=== PATIENT | female | born 1960 | race Caucasian/White ===

== ENCOUNTER → 2016-12-09 | Outpatient (CLI) | payer MEDICAID | LOC: RAD 08:30 | PROVIDERS: ATTEND Specialist | DX: C7A.8 Other malignant neuroendocrine tumors (principal) | CPT/HCPCS: 71260; 74160; 82565 ==

== ENCOUNTER → 2017-02-28 | Outpatient (CLI) | payer MEDICAID | LOC: RAD 15:55 | PROVIDERS: ATTEND Specialist | DX: C7A.8 Other malignant neuroendocrine tumors (principal); Z92.21 Personal history of antineoplastic chemotherapy | CPT/HCPCS: 78815; A9552 ==

== ENCOUNTER → 2017-06-15 | Outpatient (CLI) | payer MEDICAID ==
--- NOTE | 2017-06-16 09:39 | RADIOLOGY REPORT (SQ) ---
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 TECHNIQUE: Blood glucose level was verified. Above dose of FDG was injected intravenously. 2-D seg mented attenuation correction images were obtained from the base of the skull to the midthighs. Nonc ontrast CT images were obtained for attenuation correction and fusion with emission images. CT image s were performed without oral or intravenous contrast and are not sensitive for parenchymal lesions. A series of overlapping emission PET images were obtained. Images reviewed and manipulated at [facility] work station by the radiologist. Images stored on PACS. LIMITATIONS: None. FINDINGS: HEAD AND NECK: No areas of abnormal metabolic activity in the soft tissues of the head and neck. CHEST: No areas of abnormal metabolic activity in the chest. ABDOMEN AND PELVIS: Pancreatic mass has increased in size to 4.7 x 5.6 cm. SUV 6.0. PROXIMAL LOWER EXTREMITIES: No areas of abnormal metabolic activity in the soft tissues of the lower extremities. BONES: No abnormal metabolic activity in the visualized skeleton. ADDITIONAL CT FINDINGS: Unchanged non hypermetabolic lung nodules measuring up to about 1 cm. OTHER: No other significant findings. IMPRESSION: Increase in size of hypermetabolic pancreatic mass. TECHNICAL DOCUMENTATION: JOB ID: [id number] [employer]- All Rights Reserved
== END ==
LOC: RAD 16:55
PROVIDERS: ATTEND Internal Medicine
DX: C7A.8 Other malignant neuroendocrine tumors (principal)
CPT/HCPCS: 78815; A9552

== ENCOUNTER → 2017-08-27 | Outpatient (CLI) | payer MEDICAID ==
--- NOTE | 2017-08-27 13:34 | RADIOLOGY REPORT (SQ) ---
EXAM DESCRIPTION: CT ABDOMEN COMBO COMPLETED DATE/TIME: 08/27/2017 10:27 am REASON FOR STUDY: PANCREATIC CA(C25.1), SECONDARY LUNG CA (C78.00) C25.1 MALIGNANT NEOPLASM OF BODY OF PANCREAS C78.00 SECONDARY MALIGNANT NEOPLASM OF UNSPECIFIED LUNG COMPARISON: PET-CT 02/28/2017, 06/15/2017 CT chest 09/06/2016, 12/09/2016 CT abdomen pelvis 05/02/2016, 06/26/2016 TECHNIQUE: CT scan of the abdomen performed with and without intravenous contrast, and without oral contrast. Contrasted imaging performed using helical scanning technique with dynamic intravenous cont rast injection. Images reviewed with lung, soft tissue, and bone windows. Reconstructed coronal and s agittal MPR images reviewed. Delayed images for evaluation of the urinary system also acquired and ev aluated. All images stored on PACS. All CT scanners at this facility use dose modulation, iterative reconstruction, and/or weight based d osing when appropriate to reduce radiation dose to as low as reasonably achievable (ALARA). [facility]: Dose Right [facility]: CareDose [facility]: Dose Right [facility]: Teradose 4D [facility]: [employer] CONTRAST TYPE AND DOSE: contrast/concentration: Isovue 370.00 mg/ml; Total Contrast Delivered: 41.0 ml; Total Saline Delivered: 71.1 ml RENAL FUNCTION: Creatinine 0.5 RADIATION DOSE: Up-to-date CT equipment and radiation dose reduction techniques were employed. CTDIv ol: 3.6 - 11.3 mGy. DLP: 619 mGy-cm.. LIMITATIONS: None. FINDINGS: NONCONTRASTED IMAGING: No calcified gallstones or urinary stones. Several surgical clips are present in the right upper quadrant. POSTCONTRASTED IMAGING: LOWER CHEST: No significant findings. No nodules or infiltrates. LIVER: There is fatty liver. Air in the intrahepatic bile ducts left lobe liver similar compared to PET-CT 06/15/2017 A 2 x 1.8 cm liver parenchymal nodule is evident at the falciform ligament compatible with metastatic lesion. This is best shown on the axial series 6, image 4. There is an incompletely occlusive clot in the right portal vein, best shown on axial series 6, image s 37-46. SPLEEN: Normal size. No focal splenic lesions. However, the splenic vein is occluded by the pancrea tic head mass. PANCREAS: Since the prior PET-CT, pancreatic mass has significantly enlarged. Currently this measure s 7.4 cm AP x 5 cm transverse by 11 cm craniocaudad (was 5.6 by 4.7 cm in greatest diameter on prior PET-CT 06/15/2017). The pancreatic tail is profoundly atrophic, with a dilated main pancreatic duct b est shown on axial image 47. Tumor completely surrounds the superior mesenteric artery and celiac ar dimple proximally without high-grade stenosis. Tumor occludes the splenic vein and superior mesenteric vein. There is surrounding adenopathy, with a 2.2 x 1.4 cm celiac lymph node superior to the pancreatic kashif or, and a 1.6 x 1.1 cm retroperitoneal lymph node at the left renal artery. No ascites. GALLBLADDER: Surgically absent. ADRENAL GLANDS: No significant masses or asymmetry. RIGHT KIDNEY AND URETER: No solid masses. No significant calcifications. No hydronephrosis or hyd roureter. LEFT KIDNEY AND URETER: No solid masses. No significant calcifications. No hydronephrosis or hydr oureter. AORTA AND VESSELS: No aneurysm. No dissection. Renal arteries, SMA, celiac without stenosis. RETROPERITONEUM: As above BOWEL AND PERITONEAL CAVITY: Small bowel anastomotic danny in the left epigastrium. No evidence of bowel obstruction. APPENDIX: Not in the field of view ABDOMINAL WALL: No masses. No hernias. BONES: No significant or acute findings. OTHER: No other significant finding. IMPRESSION: Increase in size of pancreatic head mass, canal tumor is narrowing or occluding the sple suzan vein and superior mesenteric veins. There is incompletely occlusive clot in the right portal vein 2 x 1.8 cm liver parenchymal nodule left lobe near the falciform worrisome for liver metastatic lesio n Enlarged retroperitoneal nodes TECHNICAL DOCUMENTATION: JOB ID: [id number] Quality ID # [id number]: Final reports with documentation of one or more dose reduction techniques (e.g., Au tomated exposure control, adjustment of the mA and/or kV according to patient size, use of iterative reconstruction technique) 2010 [employer]- All Rights Reserved
== END ==
LOC: RAD 09:16
PROVIDERS: ATTEND Radiology Radiation Oncology
DX: C25.1 Malignant neoplasm of body of pancreas (principal); C78.00 Secondary malignant neoplasm of unspecified lung
CPT/HCPCS: 74170

== ENCOUNTER → 2017-09-07 | Outpatient (CLI) | payer MEDICAID ==
--- NOTE | 2017-09-08 09:52 | RADIOLOGY REPORT (SQ) ---
EXAM DESCRIPTION: PET CT SKULL/THIGH COMPLETED DATE/TIME: 09/07/2017 5:22 pm REASON FOR STUDY: PANCREATIC CANCER C25.1 MALIGNANT NEOPLASM OF BODY OF PANCREAS C78.00 SECONDARY MALIGNANT NEOPLASM OF UNSPECIFIED LUNG COMPARISON: CT abdomen pelvis 08/27/2017 PET-CT 06/15/2017, 02/28/2017 CT chest abdomen pelvis 12/09/2016, 09/06/2016, 06/26/2016 CT chest 06/26/2016 go RADIONUCLIDE AND DOSE: 12 mCi F18 FDG The route of agent administration: Intravenous FASTING BLOOD SUGAR: 112 mg/dl CONTRAST TYPE AND DOSE: No CT contrast given. TECHNIQUE: Blood glucose level was verified. Above dose of FDG was injected intravenously. 2-D seg mented attenuation correction images were obtained from the base of the skull to the midthighs. Nonc ontrast CT images were obtained for attenuation correction and fusion with emission images. CT image s were performed without oral or intravenous contrast and are not sensitive for parenchymal lesions. A series of overlapping emission PET images were obtained. Images reviewed and manipulated at [facility] work [facility] by the radiologist. Images stored on PACS. LIMITATIONS: None. FINDINGS: HEAD AND NECK: No areas of abnormal metabolic activity in the soft tissues of the head and neck. CHEST: No areas of abnormal metabolic activity in the chest. Specifically, subcentimeter nodule in t he superior segment right lower lobe image 73, and along the right middle lobe image 85 are non metab olic. ABDOMEN AND PELVIS: Continued enlargement of the primary pancreatic mass, now measures about 9 x 7 cm in size with central necrosis, and peripheral rim of hypermetabolic tissue with SUV ranging from 5.8 to 6.6. There are new hypermetabolic lymph nodes at the root of mesenteries and in the retroperitoneum along the aorta and vena cava, SUV 2.44. Since the prior PET-CT exam 06/15/2017, patient has developed new liver lesions. Increase in size of the left lobe liver nodule since 08/27/2017. On the current exam, there is a 3 x 2.3 cm mass at the left lobe liver near the falciform ligament with SUV of 7 (was 2 x 1.8 cm on 2016, not present on PET-CT 06/15/2017). New hypermetabolic lesion posterior right lobe liver sub- diaphragmatic surface about 1 cm in size wi th SUV 4.2 (new compared to 08/27/2017 and 06/15/2017). PROXIMAL LOWER EXTREMITIES: No areas of abnormal metabolic activity in the soft tissues of the lower extremities. BONES: No abnormal metabolic activity in the visualized skeleton. ADDITIONAL CT FINDINGS: Old left occipital craniotomy. Post cholecystectomy and Obey-en-Y hepaticoje junostomy. OTHER: Liver background activity 1.5 SUV, blood pool activity background 1.3 SUV IMPRESSION: Progression of primary pancreatic tumor compared to previous exams. Liver lesions are n ow present. Increasing retroperitoneal and root of mesentery adenopathy TECHNICAL DOCUMENTATION: JOB ID: [id number] [employer]- All Rights Reserved
== END ==
LOC: RAD 15:03
PROVIDERS: ATTEND Radiology Radiation Oncology
DX: C25.1 Malignant neoplasm of body of pancreas (principal); C78.00 Secondary malignant neoplasm of unspecified lung
CPT/HCPCS: 78815; A9552

== ENCOUNTER → 2017-11-07 | Outpatient (CLI) | payer MEDICAID ==
--- NOTE | 2017-11-07 12:52 | RADIOLOGY REPORT (SQ) ---
EXAM DESCRIPTION: CT CHEST WITH; CT ABDOMEN WITH IV ORAL CONT COMPLETED DATE/TIME: 11/07/2017 11:43 am REASON FOR STUDY: C7A.8 OTHER MALIGNANT NEUROENDOCRINE TUMORS; C C7A.8 OTHER MALIGNANT NEUROENDOCRI NE TUMORS COMPARISON: CT chest and abdomen 12/09/2016, 11/06/2015, 06/26/2016 PET-CT 02/28/2017, 06/15/2017, 09/07/2017 CONTRAST TYPE AND DOSE: contrast/concentration: Isovue 370.00 mg/ml; Total Contrast Delivered: 45.0 ml; Total Saline Delivered: 62.0 ml RENAL FUNCTION: Creatinine 0.4 TECHNIQUE: CT scan of the chest performed using helical scanning technique with dynamic intravenous contrast injection. Images reviewed with lung, soft tissue and bone windows. Reconstructed coronal a nd sagittal MPR images reviewed. All images stored on PACS. CT scan of the abdomen performed with intravenous and with oral contrastusing helical scanning techni que with dynamic intravenous contrast injection. Images reviewed with lung, soft tissue and bone win dows. Reconstructed coronal and sagittal MPR images reviewed. Delayed images for evaluation of the urinary system also acquired and evaluated. All images stored on PACS. All CT scanners at this facility use dose modulation, iterative reconstruction, and/or weight based d osing when appropriate to reduce radiation dose to as low as reasonably achievable (ALARA). [facility]: Dose Right [facility]: CareDose [facility]: Dose Right [facility]: Teradose 4D [facility]: [employer] RADIATION DOSE: CT Rad equipment meets quality standard of care and radiation dose reduction techniq ues were employed. CTDIvol: 4.4 - 4.4 mGy. DLP: 448 mGy-cm. . LIMITATIONS: None. FINDINGS: CHEST: LUNGS AND PLEURA: A 9 mm nodule is present in the superior segment right lower lobe image 54 (stable compared to PET-CT 09/07/2017). The subcentimeter nodule in the right middle lobe on PET-CT 09/07/2017 is no longer identified. There is stable pleuroparenchymal bandlike scarring in the right upper lobe image 24, and superior se gment left lower lobe image 38. HILAR AND MEDIASTINAL STRUCTURES: No identified masses or abnormal nodes. HEART AND VASCULAR STRUCTURES: No aneurysm or dissection. No central pulmonary emboli. No pericardi al effusion. HARDWARE: None. THYROID AND OTHER SOFT TISSUES: No masses. No adenopathy. BONES: No significant finding. OTHER: No other significant finding. ABDOMEN AND PELVIS: LIVER: Multiple liver metastatic lesions are now evident, the largest are as follows: 5 x 5 cm posterior right lobe liver axial image 17 2.3 x 2 cm caudate lobe image 21 The portal vein thrombosis seen on CT 08/27/2017 has resolved. On today's study, no gross portal vein clot is present although the main portal vein at the ira hepatis and superior mesenteric vein are severely stenotic related to the mass at the level of the pancreatic head. SPLEEN: Normal size. Chronically occluded splenic vein with left upper quadrant collaterals along th e GE junction and stomach fundus PANCREAS: Ill-defined mass at the pancreatic head, encasing the SMA, SMV and portal vein with SMV and portal vein high-grade narrowing. Overall, the mass is similar compared to previous study, about cm AP by 8 cm transverse today (was 7 x 7 cm on 08/27/2017). There is atrophy of the pancreatic tail, s table. GALLBLADDER: Surgically absent. A biliary enteric anastomosis is present in the right upper quadrant , small amount of air in the left intrahepatic bile ducts confirms patency of the anastomosis. ADRENAL GLANDS: No significant masses or asymmetry. RIGHT KIDNEY AND URETER: No solid masses. No significant calcification. No hydronephrosis or hydroure ter. LEFT KIDNEY AND URETER: No solid masses. No significant calcification. No hydronephrosis or hydrouret er. AORTA AND VESSELS: No aneurysm. No dissection. Renal arteries, SMA, celiac without stenosis. RETROPERITONEUM: No retroperitoneal adenopathy, hemorrhage or masses. BOWEL AND PERITONEAL CAVITY: No masses or inflammatory changes. No free fluid or peritoneal masses. APPENDIX: Not in the field of view ABDOMINAL WALL: No masses. No hernias. BONES: No significant or acute findings. OTHER: No other significant finding. IMPRESSION: Progression of disease, now with liver metastatic lesions evident Stable spiculated nodule superior segment right lower lobe No portal vein clot identified on today's CT. There is tumor narrowing the main portal vein and supe rior mesenteric vein TECHNICAL DOCUMENTATION: JOB ID: [id number] Quality ID # [id number]: Final reports with documentation of one or more dose reduction techniques (e.g., Au tomated exposure control, adjustment of the mA and/or kV according to patient size, use of iterative reconstruction technique) 2010 [employer]- All Rights Reserved
== END ==
LOC: RAD 08:46
PROVIDERS: ATTEND Internal Medicine Hematology & Oncology
DX: C7A.8 Other malignant neuroendocrine tumors (principal); C78.7 Secondary malignant neoplasm of liver and intrahepatic bile duct
CPT/HCPCS: 71260; 74160; 82565

== ENCOUNTER 2018-01-08 12:22 | Emergency (ER) | payer MEDICAID ==
--- NOTE | 2018-01-08 12:54 | ER Document Report ---
ED Medical Screen (RME) - General Chief Complaint: Edema Stated Complaint: STOMACH PAIN CANCER PT Time Seen by Provider: 01/08/18 12:49 Mode of Arrival: Wheelchair Information source: Patient, Relative Notes: 57-year-old female history of stomach cancer is noted to be pushing on the liver per family presents with abdominal distention on and off for the past month which has worsened recently causing shortness of breath I have greeted and performed a rapid initial assessment of this patient. A comprehensive ED assessment and evaluation of the patient, analysis of test results and completion of the medical decision making process will be conducted by additional ED providers. PHYSICAL EXAMINATION: GENERAL: Cachectic ill-appearing female HEAD: Atraumatic, normocephalic. EYES: Pupils equal round extraocular movements intact, conjunctiva are normal. ENT: Nares patent NECK: Normal range of motion LUNGS: No respiratory distress Abdomen: Significant distention Musculoskeletal: Normal range of motion NEUROLOGICAL: Normal speech, normal gait. PSYCH: Normal mood, normal affect. SKIN: Lesion left occiput TRAVEL OUTSIDE OF THE [place] IN LAST 30 DAYS: No - Related Data Allergies/Adverse Reactions: No Known Allergies Allergy (Verified 05/02/16 07:38) Physical Exam - Vital signs Vitals: Temp Pulse BP Pulse Ox 97.4 F 96 113/57 L 96 01/08/18 12:31 01/08/18 12:31 01/08/18 12:31 01/08/18 12:31 Course - Vital Signs Vital signs: Temp Pulse Resp BP Pulse Ox 97.4 F 96 113/57 L 96 01/08/18 12:31 01/08/18 12:31 01/08/18 12:31 01/08/18 12:31
--- NOTE | 2018-01-08 13:23 | ER Document Report ---
ED GI/ - General Chief Complaint: Edema Stated Complaint: STOMACH PAIN CANCER PT Time Seen by Provider: 01/08/18 12:49 Mode of Arrival: Wheelchair Notes: The patient is a 57-year-old female, past medical history metastatic gastric cancer, presents with increased abdominal distention and some difficulty breathing over the past 3 weeks. Patient is also having bilateral peripheral extremity edema and takes Lasix and spironolactone. She is no longer receiving any treatment for her cancer and she follows with Dr. Varner. She denies nausea, vomiting, chest pain, cough, diarrhea, constipation or urinary symptoms. TRAVEL OUTSIDE OF THE [place] IN LAST 30 DAYS: No - Related Data Allergies/Adverse Reactions: No Known Allergies Allergy (Verified 05/02/16 07:38) Past Medical History - General Information source: Patient, Relative - Social History Smoking Status: Current Every Day Smoker Chew tobacco use (# tins/day): No Frequency of alcohol use: None Drug Abuse: None Family History: Reviewed & Not Pertinent Patient has suicidal ideation: No Patient has homicidal ideation: No Renal/ Medical History: Denies: Hx Peritoneal Dialysis Past Surgical History: Reports: Hx Abdominal Surgery - attempted to remove tumor and lymph nodes, Hx Cholecystectomy Review of Systems - Review of Systems Notes: REVIEW OF SYSTEMS: CONSTITUTIONAL: -fevers, -chills EENT: -eye pain, -difficulty swallowing, -nasal congestion CARDIOVASCULAR: -chest pain, -syncope, +edema RESPIRATORY: -cough, +SOB GASTROINTESTINAL: +abdominal pain, -nausea, -vomiting, -diarrhea GENITOURINARY: -dysuria, -hematuria MUSCULOSKELETAL: -back pain, -neck pain SKIN: -rash or skin lesions. HEMATOLOGIC: -easy bruising or bleeding. LYMPHATIC: -swollen, enlarged glands. NEUROLOGICAL: -altered mental status or loss of consciousness, -headache, - neurologic symptoms PSYCHIATRIC: -anxiety, -depression. ALL OTHER SYSTEMS REVIEWED AND NEGATIVE. Physical Exam - Vital signs Vitals: Temp Pulse BP Pulse Ox 97.4 F 96 113/57 L 96 01/08/18 12:31 01/08/18 12:31 01/08/18 12:31 01/08/18 12:31 - Notes Notes: PHYSICAL EXAMINATION: GENERAL: Cachectic looking. HEAD: Atraumatic, normocephalic. EYES: Pupils equal round and reactive to light, extraocular movements intact, sclera anicteric, conjunctiva are normal. ENT: nares patent, oropharynx clear without exudates. Moist mucous membranes. NECK: Normal range of motion, supple without lymphadenopathy LUNGS: Breath sounds clear to auscultation bilaterally and equal. No wheezes rales or rhonchi. HEART: Regular rate and rhythm without murmurs ABDOMEN: Soft, dffuse tenderness, normoactive bowel sounds. Mild lower distention. No guarding, no rebound. EXTREMITIES: 2+ pitting edema. Normal range of motion. No cyanosis. NEUROLOGICAL: Cranial nerves grossly intact. Normal speech, normal gait. Normal sensory and motor exams. PSYCH: Normal mood, normal affect. SKIN: Warm, Dry, normal turgor, no rashes or lesions noted. Course - Re-evaluation Re-evalutation: Bedside ultrasound of abdomen does not reveal any peritoneal fluid to suggest ascites. Chest x-ray does not show any evidence of acute infiltrates. Blood work is remarkable for acute hyponatremia. CT of the abdomen and pelvis obtained to assess reason for worsening abdominal distention. 01/08/18 15:47 CT A/P shows extensive metastatic disease. Spoke to her oncologist, Dr. Varner, about recommendations and goals of care. She has tried to set up outpatient home hospice for this week, but there have been some difficulties. She agrees that hospice is the right choice for the patient. Spoke to the patient about her poor prognosis and emphasized that hospice is an appropriate choice due to her extensive disease process. Had case management help set up home hospice for patient. Patient understands that her cancer is not curable and that she may soon. She has oxycodone at home already and is more concerned about her increased peripheral edema. She takes Lasix 20 mg bid and spironolactone 50 mg bid. Will double her doses and add compression stockings. Will discharge patient home with home hospice follow-up. - Vital Signs Vital signs: Temp Pulse Resp BP Pulse Ox 97.4 F 96 113/57 L 96 01/08/18 12:31 01/08/18 12:31 01/08/18 12:31 01/08/18 12:31 - Laboratory Result Diagrams: 01/08/18 13:45 01/08/18 13:45 Laboratory results interpreted by me: 01/08/18 01/08/18 13:45 13:45 WBC 12.3 H Hgb 10.0 L Hct 29.6 L MCV 78 L MCH 26.4 L RDW 16.1 H Plt Count 144 L Seg Neuts % (Manual) 89 H Lymphocytes % (Manual) 1 L Abs Neuts (Manual) 10.9 H Abs Lymphs (Manual) 0.1 L Sodium 114.6 L* Chloride 76 L Carbon Dioxide 33 H BUN 29 H Direct Bilirubin 0.6 H AST 88 H ALT 57 H Alkaline Phosphatase 314 H Albumin 3.1 L - Diagnostic Test Radiology reviewed: Image reviewed, Reports reviewed Radiology results interpreted by me: CXR: No active pulmonary infiltrates. Minimal spiculated density noted superior segment right lower lobe on CT of the chest on 11/07/2017 not identified on radiograph. Possible developing left paratracheal and mediastinal mass or lymphadenopathy. CT A/P: 1. There are large numbers of large metastases in the liver. 2. There is a 3 cm mass in the neck of the pancreas appear 3. There is a masslike area of density in the anterior abdomen adjacent to the abdominal wall. This could represent a group of bowel loops, but neoplasm cannot be excluded. 4. There is mesenteric edema and ascites. The appearance of the bowel, especially around the rectum, is concerning for widespread neoplasm. 5. There is an ovoid subcutaneous density anteriorly in the pelvis as described. Discharge - Discharge Clinical Impression: Hyponatremia, Metastasis from malignant tumor of stomach Dyspnea Qualifiers: Dyspnea type: unspecified Qualified Code(s): R06.00 - Dyspnea, unspecified Condition: Poor Disposition: HOME, SELF-CARE Additional Instructions: You may double your doses of Lasix and spironolactone to help with the fluid in your legs. You may also add compression stockings and keep your legs elevated. Continue your pain medicines. Edema, Peripheral You have swelling in your legs. This is called peripheral edema. It can be caused by "leaky capillaries," inflammation, disease of the leg veins, or excess salt and water in your body. Edema may be a sign of heart, kidney, or liver disease. A medical evaluation can determine if there is a serious underlying cause for your edema. Avoid prolonged standing. If you must sit for a long time, occasionally get up and walk around or elevate your legs. Support stockings can be helpful in limiting swelling. Often diuretic or water pills are used to remove excess salt and water from your body. Call the doctor or return if you develop increased swelling, pain, or redness, shortness of breath, chest pain, or any other significant change. Prescriptions: Furosemide [Lasix 40 mg Tablet] 40 mg PO BID 30 Days tablet Spironolactone [Aldactone 100 mg Tablet] 1 tab PO Q12 #60 tab Referrals: ASHLEY VARNER MD [Primary Care Provider] - Follow up as needed
[2018-01-08 13:59] LABS: HEMATOCRIT 29.6 % (36.0-47.0); MEAN CORPUSCULAR HEMOGLOBIN 26.4 pg (27.0-33.4); MEAN CORPUSCULAR HGB CONC 33.9 g/dL (32.0-36.0); MEAN CORPUSCULAR VOLUME 78 fl (80-97); PLATELET COUNT 144 10^3/uL (150-450); RED CELL DISTRIBUTION WIDTH 16.1 % (11.5-14.0); WHITE BLOOD COUNT 12.3 10^3/uL (4.0-10.5)
--- NOTE | 2018-01-08 14:08 | RADIOLOGY REPORT (SQ) ---
EXAM DESCRIPTION: CHEST SINGLE VIEW COMPLETED DATE/TIME: 01/08/2018 1:57 pm REASON FOR STUDY: SOB COMPARISON: None. EXAM PARAMETERS: NUMBER OF VIEWS: One view. TECHNIQUE: Single frontal radiographic view of the chest acquired. RADIATION DOSE: NA LIMITATIONS: None. FINDINGS: LUNGS AND PLEURA: No focal infiltrate. No pleural effusions. MEDIASTINUM AND HILAR STRUCTURES: 3 cm left paratracheal density and possible widening of mediastinu m on the right. Developing adenopathy is a consideration although not present on the previous CT scan the chest on . HEART AND VASCULAR STRUCTURES: Heart normal in size. Normal vasculature. BONES: No acute findings. HARDWARE: None in the chest. OTHER: No other significant finding. IMPRESSION: No active pulmonary infiltrates. Minimal spiculated density noted superior segment righ t lower lobe on CT of the chest on 11/07/2017 not identified on radiograph. Possible developing left paratracheal and mediastinal mass or lymphadenopathy. TECHNICAL DOCUMENTATION: JOB ID: [id number] [employer]- All Rights Reserved Reading location - IP/workstation name: [email or web address]
[2018-01-08 14:13] LABS: ALANINE AMINOTRANSFERASE 57 U/L (9-52); ALBUMIN 3.1 g/dL (3.5-5.0); ALKALINE PHOSPHATASE 314 U/L (38-126); ANION GAP 6 (5-19); ASPARTATE AMINO TRANSFERASE 88 U/L (14-36); BILIRUBIN,DIRECT 0.6 mg/dL (0.0-0.4); BILIRUBIN,TOTAL 0.8 mg/dL (0.2-1.3); BLOOD UREA NITROGEN 29 mg/dL (7-20); CALCIUM 9.2 mg/dL (8.4-10.2); CARBON DIOXIDE 33 mmol/L (22-30); CHLORIDE 76 mmol/L (98-107); GLUCOSE 104 mg/dL (75-110); POTASSIUM 4.9 mmol/L (3.6-5.0); TOTAL PROTEIN 6.5 g/dL (6.3-8.2)
[2018-01-08 14:18] LABS: ABSOLUTE LYMPHOCYTES# (MANUAL) 0.1 10^3/uL (0.5-4.7); ABSOLUTE NEUTROPHILS# (MANUAL) 10.9 10^3/uL (1.7-8.2); BASOPHILS % (MANUAL) 1 % (0-2); EOSINOPHILS % (MANUAL) 1 % (0-6); LYMPHOCYTES % (MANUAL) 1 % (13-45); MONOCYTES % (MANUAL) 8 % (3-13); SEGMENTED NEUTROPHILS % (MAN) 89 % (42-78); SODIUM 114.6 mmol/L (137-145); TOTAL CELLS COUNTED 100
[2018-01-08 14:19] LABS: ANISOCYTOSIS 1+; OVALOCYTES 1+; PLATELET COMMENT DECREASED; POIKILOCYTOSIS 1+; TOXIC GRANULATION 1+
[2018-01-08 14:20] LABS: INTERNATIONAL RATION (INR) 1.01; PARTIAL THROMBOPLASTIN TIME 30.4 SEC (23.5-35.8)
[2018-01-08] MEDS ORDERED: HYDROMORPHONE HCL INJ/PF 2 MG/ML AMPULE IV ONE (15:06)
--- NOTE | 2018-01-08 15:22 | RADIOLOGY REPORT (SQ) ---
EXAM DESCRIPTION: CT ABD/PELVIS WITH IV ONLY COMPLETED DATE/TIME: 01/08/2018 2:51 pm REASON FOR STUDY: abdominal distention, SOB, Hx gastric cancer COMPARISON: 05/02/2016 TECHNIQUE: CT scan of the abdomen and pelvis performed using helical scanning technique with dynamic intravenous contrast injection. No oral contrast. Images reviewed with lung, soft tissue, and bone windows. Reconstructed coronal and sagittal MPR images reviewed. Delayed images for evaluation of the urinary system also acquired. All images stored on PACS. All CT scanners at this facility use dose modulation, iterative reconstruction, and/or weight based d osing when appropriate to reduce radiation dose to as low as reasonably achievable (ALARA). [facility]: Dose Right [facility]: CareDose [facility]: Dose Right [facility]: Teradose 4D [facility]: SmartCells CONTRAST TYPE AND DOSE: contrast/concentration: Isovue 370.00 mg/ml; Total Contrast Delivered: 48.0 ml; Total Saline Delivered: 65.0 ml RENAL FUNCTION: BUN 29 creatinine 0.7 RADIATION DOSE: CT Rad equipment meets quality standard of care and radiation dose reduction techniq ues were employed. CTDIvol: 4.8 mGy. DLP: 469 mGy-cm.. LIMITATIONS: None. FINDINGS: LOWER CHEST: Ground-glass infiltrates are present the right base and to a minimal degree t he left base. LIVER: The liver is markedly heterogeneous with large low-density masses present extensively in the r ight lobe particularly. SPLEEN: Normal size. No focal lesions. PANCREAS: There is a 3 cm mass in the neck of the pancreas near the midline that is low in density. This appears to be somewhat thick-walled. GALLBLADDER: Surgically absent. ADRENAL GLANDS: No significant masses or asymmetry. RIGHT KIDNEY AND URETER: No solid masses. No significant calcifications. No hydronephrosis or hyd roureter. LEFT KIDNEY AND URETER: No solid masses. No significant calcifications. No hydronephrosis or hydr oureter. AORTA AND VESSELS: No aneurysm. No dissection. Renal arteries, SMA, celiac without stenosis. RETROPERITONEUM: Significant adenopathy appears to be present in the retroperitoneum and periaortic a evan. BOWEL AND PERITONEAL CAVITY: Ascites is present. Mesenteric edema is present. There is the appearan ce of a mass that cannot really be from the anterior abdominal wall just to the left of the midline. This is seen best on image 32 series 3. This could represent a group of adjacent small shreyas wel loops. Neoplasm certainly cannot be excluded. APPENDIX: Cannot be identified. PELVIS: Ascites. Urinary bladder is normal. There appears to be thickening of the wall of the rectu m [facility] on the left more than right but significantly so. ABDOMINAL WALL: There is an ovoid area of density in the subcutaneous fat in the pelvis at the level of the hips just to the right of the midline. BONES: No significant or acute findings. OTHER: No other significant finding. IMPRESSION: 1. There are large numbers of large metastases in the liver. 2. There is a 3 cm mass in the neck of the pancreas appear 3. There is a masslike area of density in the anterior abdomen adjacent to the abdominal wall. This could represent a group of bowel loops, but neoplasm cannot be excluded. 4. There is mesenteric edema and ascites. The appearance of the bowel, especially around the rectum , is concerning for widespread neoplasm. 5. There is an ovoid subcutaneous density anteriorly in the pelvis as described. TECHNICAL DOCUMENTATION: JOB ID: [id number] Quality ID # [id number]: Final reports with documentation of one or more dose reduction techniques (e.g., Au tomated exposure control, adjustment of the mA and/or kV according to patient size, use of iterative reconstruction technique) 2010 [employer]- All Rights Reserved Reading location - IP/workstation name: [email or web address]
[2018-01-08] MEDS ORDERED: HYDROMORPHONE HCL INJ/PF 2 MG/ML AMPULE IV PRN (15:43)
[2018-01-08] MEDS ORDERED: OXYCODONE HCL SR 40 MG TABLET PO ONE (15:44)
[2018-01-08] MEDS ORDERED: FUROSEMIDE INJ/PF 40 MG/4 ML SDV IV ONE (15:44)
[2018-01-08 16:16] VITALS: BP 100/60
== END 2018-01-08 16:19 | disposition home or self-care (01) ==
LOC: ER 12:22
DX: R60.9 Edema, unspecified (principal); E87.1 Hypo-osmolality and hyponatremia; C16.9 Malignant neoplasm of stomach, unspecified; R06.00 Dyspnea, unspecified; R10.9 Unspecified abdominal pain; F17.200 Nicotine dependence, unspecified, uncomplicated; Z90.49 Acquired absence of other specified parts of digestive tract
CPT/HCPCS: 96376; 99285; 96374; 96375; 36415; 85025; 85610; 85730; 80053; 71045; 74177; J1940; J1170; J3490